=== PATIENT | male | born 1995 | race Caucasian/White ===

== ENCOUNTER 2023-05-04 11:03 | Emergency (ER) | payer OTHER, SELFPAY ==
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
[2023-05-04 11:05] VITALS: BP 133/81; PULSE 61; RESP 18; TEMP 36.6; O2SAT 100
[2023-05-04] MEDS: MORPHINE SULFATE (*CRX) 4 MG/ML INJ (11:25)
[2023-05-04] MEDS: SODIUM CHLORIDE 0.9% IV 1,000 ML 500 ML IV CONT (11:25)
[2023-05-04] MEDS: ONDANSETRON INJ 4 MG/2 ML VIAL (11:25)
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
[2023-05-04 12:07] LABS: Basophils Percent Auto 0.2 % (0.2-1.2); Eosinophils Percent Auto 0.1 % (0-4.4); Hematocrit 51.3 % (42.0-52.0); Hemoglobin 16.6 g/dL (14.0-18.0); Immature Granulocyte Absolute 0.07 K/mm3 (0.00-0.031); Immature Granulocyte Percent A 0.5 % (0-0.5); Lymphocytes Absolute Auto 0.72 K/mm3 (0.9-3.2); Lymphocytes Percent Auto 4.8 % (18.3-44.2); Mean Corpuscular HGB Conc 32.4 g/dl (32-36); Mean Corpuscular Hemoglobin 31.3 pg (26-34); Mean Corpuscular Volume 96.8 fl (80-100); Mean Platelet Volume 12.7 fl (7.4-10.4); Monocytes Absolute Auto 0.9 K/mm3 (0.1-0.6); Monocytes Percent Auto 5.9 % (2.6-8.5); Neutrophils Absolute Auto 13.3 K/mm3 (1.3-6.7); Neutrophils Percent Auto 88.5 % (45.5-73.1); Platelet Count Result 190 k/mm3 (150-375); Red Cell Distribution Width 13.7 % (11.5-14.5)
[2023-05-04] MEDS: ONDANSETRON INJ 4 MG/2 ML VIAL IV PUSH (12:09)
--- NOTE | 2023-05-04 12:14 | PC.NURSE ---
pt accepted by Dr Frias at [facility].
[2023-05-04 12:25] LABS: Partial Thromboplastin Time 24.1 SECONDS (22.3-36.8); Prothrombin Time 13.2 Seconds (11.1-14.7)
[2023-05-04 12:42] LABS: Platelet Estimate Adequate (Adequate); Schistocytes None Seen (NORMAL)
[2023-05-04 13:12] LABS: Alanine Aminotransferase 50 U/L (6-50); Albumin Level 4.2 g/dL (3.5-5.1); Alkaline Phosphatase 78 U/L (38-126); Anion Gap 11 mmol/L (8-16); Aspartate Amino Transferase 37 U/L (17-59); Bilirubin,Total 1.5 mg/dL (0.2-1.3); Blood Urea Nitrogen 16 mg/dL (9-20); Calcium 8.4 mg/dL (8.4-10.2); Carbon Dioxide 23 mmol/L (22-30); Chloride 104 mmol/L (98-107); Estimated CRCL calculation 178 ml/min; Estimated Glomerular Filt Rate > 60; Glucose 111 mg/dL (65-110); Sodium 138 mmol/L (137-145)
[2023-05-04 13:14] LABS: Ethanol < 10 mg/dL (<10)
[2023-05-04] MEDS: MORPHINE SULFATE (*CRX) 4 MG/ML INJ IV PUSH (13:38)
[2023-05-04] MEDS: SILVER SULFADIAZINE 1% CR 50 GM JAR (*BKC) 1 APPLIC TOPICAL (13:39)
[2023-05-04] MEDS: TETANUS,DIPHTHERIA,AC PERTUSSIS ADULT (0.5 ML) BOOSTRIX IM (13:39)
== END 2023-05-04 13:54 | disposition short-term general hospital (02) ==
PROVIDERS: Emergency Provider Physician Assistant
DX: T21.21XA Burn of second degree of chest wall, initial encounter (principal); T21.23XA Burn of second degree of upper back, initial encounter; T22.20XA Burn of second degree of shoulder and upper limb, except wrist and hand, unspecified site, initial encounter; T21.22XA Burn of second degree of abdominal wall, initial encounter; T24.211A Burn of second degree of right thigh, initial encounter; T20.27XA Burn of second degree of neck, initial encounter; T31.10 Burns involving 10-19% of body surface with 0% to 9% third degree burns; Z23 Encounter for immunization; X10.1XXA Contact with hot food, initial encounter
CPT/HCPCS: 36415; 70450; 80053; 80307; 85025; 85610; 85730; 90471; 90715; 96361; 96374; 96375; 96376; 99285; A9270; J2270; J2405; J7030